=== PATIENT | female | born 1985 | race Caucasian/White ===

== ENCOUNTER 2018-06-13 20:52 | Emergency (ER) | payer OTHER, SELFPAY ==
[2018-06-13 20:53] VITALS: BP 116/73; PULSE 108; RESP 16; TEMP 37.1; O2SAT 98; BMI 32.8
--- NOTE | 2018-06-13 22:38 | CT_ITS ---
STUDY: CT ABDOMEN AND PELVIS WITH CONTRAST REASON FOR EXAM: Female, 32 years old. Lower abdominal pain, nausea, and abdominal distention. Elevated white blood cell count. History of 3 C-sections. RADIATION DOSAGE (If Supplied By Facility): CTDIvol = ( 17.62 ) mGy, DLP = ( 1170.90 ) mGycm TECHNIQUE: Transaxial images were obtained from the dome of the diaphragm to the symphysis pubis without oral contrast. Isovue 370 100ML IV was administered. Sagittal and coronal images were reconstructed. Individualized dose optimization techniques were used for this CT. COMPARISON: None. FINDINGS: The visualized lung bases are unremarkable. The visualized portions of the heart are within normal limits. Normal liver. Normal gallbladder and extrahepatic biliary system. Normal spleen. Normal pancreas. Normal bilateral adrenal glands. Normal right kidney. Normal left kidney. Normal visualized stomach. Normal small intestine. Normal colon. The appendix is visualized on axial images 75-84 and it appears normal.. Normal abdominal aorta. Normal inferior vena cava. Normal retroperitoneum. Normal urinary bladder. There is a 4 x 1.7 x 1.9 cm heterogeneous left ovarian cyst, possibly hemorrhagic cyst. Uterus is heterogeneous and contour is irregular, consistent with a leiomyomatous uterus. Largest individual leiomyoma identified measures 1.1 cm. There is a scar in the anterior lower uterine segment. There is a small amount of free fluid in posterior cul-de-sac pelvis. There is a small umbilical hernia containing fat, but no bowel. There are mild degenerative changes of the visualized lumbar spine. CT/Abdomen/Pelvis W IV Cont ONLY IMPRESSION: 4 cm complex left ovarian cyst, possibly hemorrhagic cyst. Suggest a follow-up pelvic ultrasound. Minimal free fluid in the posterior cul-de-sac pelvis. Leiomyomatous uterus. No evidence for acute pathology. No evidence for appendicitis or diverticulitis. No evidence for bowel obstruction or ileus. No demonstrated urinary calculi or hydronephrosis. Electronically Signed: Rony Mireles MD at 0:34 EDT , Service support ,
--- NOTE | 2018-06-13 22:47 | ED.DCSUM_ITS ---
- ER Visit Summary Date of Service: 06/13/18 Chief Complaint: Abdominal pain History of Present Illness: The patient is a 32 F who presents for 1 day of abdominal pain. Patient states the onset was sudden in this morning, starting in the suprapubic region and rapidly radiating into the entire abdomen. She was incapacitated by the pain. It is pressure and cramping. Patient states the pain is worst in the right lower quadrant at this time. She had associated nausea but did not vomit. She tried an enema this afternoon without any bowel movement. She has had no diarrhea. She has had a significant decrease in flatus. She had a temperature 100.1 and chills at home. She denies chest pain, shortness of breath or other symptoms. No urinary symptoms. No vaginal discharge or bleeding. Patient denies . She has a history of 2 C- section deliveries. No other medical history or abdominal surgeries. Physical Examination: Vital signs: afebrile, hemodynamically stable, no hypoxia on room air General: well nourished, well developed, in no distress but appears mildly uncomfortable, constantly moving around on the bed and placing pressure on her right lower quadrant with her hand Skin: warm, dry, no rash, no pallor HEENT: normocephalic and atraumatic; PERRL, EOMI, moist mucous membranes Cardiovascular: Tachycardic rate and rhythm without murmurs, no peripheral edema, 2+ pulses all distal extremities Respiratory: No increased work of breathing, lungs are clear to auscultation bilaterally, no rales, rhonchi or wheezing Abdominal: Abdomen is soft, diffusely tender, more so in the lower quadrants, with normoactive bowel sounds, no guarding or rebound, no masses MSK: Moves all extremities, no deformities, normal strength Neuro: Awake and alert, oriented ?4. No facial droop, sensation and motor function intact and symmetric Test Results: Abnormal Lab Results 06/13/18 06/13/18 06/13/18 22:45 22:50 22:50 WBC 12.6 H RBC 4.50 Hgb 13.5 Hct 41.8 MCV 92.9 MCH 30.0 MCHC 32.3 RDW 13.8 RDW Differential 46.4 H Plt Count 268 MPV 10.4 Immature Gran % (Auto) 0.200 Neut % (Auto) 76.6 H Lymph % (Auto) 13.9 L [place] % (Auto) 7.4 Eos % (Auto) 1.7 Baso % (Auto) 0.2 Absolute Neuts (auto) 9.7 H Absolute Lymphs (auto) 1.75 Total Counted Not Reportable Sodium 138 Potassium 3.7 Chloride 105 Carbon Dioxide 30.0 Anion Gap 3 L BUN 12 Creatinine 0.75 Estim Creat Clear Calc 102.78 Est GFR (MDRD) Af Amer 113 Est GFR (MDRD) Non-Af 93 BUN/Creatinine Ratio 15.9 Glucose 86 Calcium 8.4 L Total Bilirubin 0.50 AST 13 L ALT 17 Alkaline Phosphatase 55 Total Protein 7.9 Albumin 3.8 Globulin 4.1 Albumin/Globulin Ratio 0.9 Lipase 84 Serum , Qual Urine Color Straw Urine Clarity Sl. Cloudy Urine pH 7.0 Ur Specific [place] 1.010 Urine Protein Negative Urine Glucose (UA) Normal Urine Ketones Negative Urine Occult Blood Negative Urine Nitrite Negative Urine Bilirubin Negative Urine Urobilinogen Normal Ur Leukocyte Esterase Negative Urine RBC 0 SEEN Urine WBC 0-5 SEEN Ur Squamous Epith Cells 0-5 SEEN Urine Bacteria 0 SEEN Urine Mucus 0 SEEN 06/13/18 22:50 WBC RBC Hgb Hct MCV MCH MCHC RDW RDW Differential Plt Count MPV Immature Gran % (Auto) Neut % (Auto) Lymph % (Auto) [place] % (Auto) Eos % (Auto) Baso % (Auto) Absolute Neuts (auto) Absolute Lymphs (auto) Total Counted Sodium Potassium Chloride Carbon Dioxide Anion Gap BUN Creatinine Estim Creat Clear Calc Est GFR (MDRD) Af Amer Est GFR (MDRD) Non-Af BUN/Creatinine Ratio Glucose Calcium Total Bilirubin AST ALT Alkaline Phosphatase Total Protein Albumin Globulin Albumin/Globulin Ratio Lipase Serum , Qual NEGATIVE Urine Color Urine Clarity Urine pH Ur Specific [place] Urine Protein Urine Glucose (UA) Urine Ketones Urine Occult Blood Urine Nitrite Urine Bilirubin Urine Urobilinogen Ur Leukocyte Esterase Urine RBC Urine WBC Ur Squamous Epith Cells Urine Bacteria Urine Mucus Clinical Impression(s) from Imaging Studies Abdomen/Pelvis CT 06/13/18 22:38 IMPRESSION: 4 cm complex left ovarian cyst, possibly hemorrhagic cyst. Suggest a follow-up pelvic ultrasound. Minimal free fluid in the posterior cul-de-sac pelvis. Leiomyomatous uterus. No evidence for acute pathology. No evidence for appendicitis or diverticulitis. No evidence for bowel obstruction or ileus. No demonstrated urinary calculi or hydronephrosis. Electronically Signed: Rony Mireles MD at 0:34 EDT , Service support , Transvaginal US 06/14/18 00:45 IMPRESSION: 2.3 cm complex right ovarian nodule, probably representing a recently ruptured and partially collapsed corpus luteum cyst. Small amount of free fluid in the posterior cul-de-sac of the pelvis and right adnexal region. No evidence for large left ovarian cyst. I suspect that the low-attenuation structure seen in the left adnexal region on CT scan and thought to represent a complex ovarian cyst was actually the left ovary. No evidence for ovarian torsion. Tentative identification of a leiomyoma in the uterine fundus. Electronically Signed: Rony Mireles MD at 3:44 EDT , Service support , Medications Given Discontinued Medications Sodium Chloride () 1,000 mls @ 1,000 mls/hr IV .Q1H ONE Stop: 06/13/18 23:37 Last Admin: 06/13/18 22:57 Dose: 1,000 mls/hr Ketorolac Tromethamine (Toradol) 15 mg IV X1 ONE Stop: 06/13/18 22:39 Last Admin: 06/13/18 22:58 Dose: 15 mg Ondansetron HCl (Zofran) 4 mg IV X1 ONE Stop: 06/13/18 22:39 Last Admin: 06/13/18 22:57 Dose: 4 mg Emergency Department Course and Treatment: Patient is tachycardic and appears uncomfortable with complaint of abdominal pain that started in the pelvic region and is now vague and diffuse but mainly in the right lower quadrant now. Patient was given IV fluids, Zofran and Toradol. Labs and CT scan of the abdomen and pelvis performed. test performed. test was negative. Labs showed a leukocytosis of 12.6. Urine was negative for infection. CT the abdomen and pelvis showed a normal appendix and no sign of bowel obstruction. It did show a large heterogenous left ovarian cyst and some free fluid in the pelvis. On reevaluation, patient still was uncomfortable and still had tenderness in the lower abdomen and pelvic region. Because of patient's initial onset of severe pelvic pain and the findings on CT scan, the concern at this point is possible ovarian torsion. Pelvic ultrasound was performed and no torsion was noted. Patient's pain is most likely from a ruptured ovarian cyst. Patient was reevaluated after the morphine and was feeling much better. She is going to follow-up with her currency counter. Patient will continue using [id number] NSAIDs for mild to moderate pain but was given a prescription for Percocet for severe pain. Patient was discharged home in improved condition with a ride. Treatment Plan: [] Disposition: [] Impression: ruptured ovarian cyst, abdominal pain This note was generated with [employer] dictation software. It may contain incorrect words, spelling, and punctuation that were not noted in review of the chart prior to signing ED Disposition - Plan for ED Patient: Disposition: Home or Assisted Living Instructions: ED Cyst Ovarian Prescriptions: Oxycodone HCl/Acetaminophen [Percocet 5/325] 1 tab PO Q6H PRN PRN 3 Days #10 tab PRN Reason: Pain Referrals: Marco Antonio Ortiz III, MD [Primary Care Provider] - 1-2 Days if not improving Additional Instructions: Please use ibuprofen or naproxen for mild to moderate pain. You may use the Percocet for severe pain. Follow-up with your currency counter for another evaluation of your ovarian cyst. If you experience return of severe pain, any lightheadedness or dizziness, high fever, uncontrolled vomiting, or any other concerning symptoms, return immediately to the emergency department for another evaluation.
[2018-06-13] MEDS: 0.9% Normal Saline 1,000 ML 1000 ML IV (22:57)
[2018-06-13] MEDS: Ondansetron 4 MG/2 ML Vial IV (22:57)
[2018-06-13] MEDS: Ketorolac 30 MG/ML Syringe 15 MG IV (22:58)
[2018-06-13 22:59] VITALS: RESP 16
[2018-06-13 23:05] LABS: Bacteria 0 SEEN /hpf (None Seen); Mucous, Urine 0 SEEN /hpf (<or=2+); Red Blood Cells-Urine 0 SEEN /hpf (0-5)
[2018-06-13 23:11] LABS: Absolute Lymphocyte Count 1.75 X10^3/ul (0.83-4.51); Absolute Neutrophil Count 9.7 X10^3/uL (2.0-7.7); Basophil# 0.02 X10^3/uL; Basophil% 0.2 % (0-1); Eosinophil# 0.22 X10^3/uL; Eosinophils% 1.7 % (0-5); Hematocrit 41.8 % (37-47); Hemoglobin 13.5 g/dl (12.0-15.0); Lymphocyte # 1.75 X10^3/ul (4.0); Lymphocyte % 13.9 % (19-41); Mean Corp Hgb Conc 32.3 g/gl (32-36); Mean Corpuscular Volume 92.9 fL (81-99); Mean Platelet Vol. 10.4 fl (6.2-12.0); Monocyte# 0.93 X10^3/uL; Monocyte% 7.4 % (0-10); Neutrophil # 9.65 X10^3/uL (2.7-7.7); Neutrophil % 76.6 % (47-70); POSITIVE COUNT NO; POSITIVE DIFFERENTIAL NO; POSITIVE MORPHOLOGY NO; Platelet Count 268 K/mm3 (150-450); RBC Distribution Width CV 13.8 % (11.6-14.6); RBC Distribution Width SD 46.4 fl (35.1-43.9); White Blood Count 12.6 K/mm3 (4.4-11.0)
[2018-06-13 23:18] LABS: Color, Urine Straw (Yellow); Glucose, Dipstick Normal (Normal); Ketone-Dipstick Negative (Negative); Leukocyte Esterase-Dipstick Negative /ul (Negative); Nitrite-Dipstick Negative (Negative); Occult Blood-Urine Negative /ul (Negative); Protein-Dipstick Negative (Negative); Urine Bilirubin Dipstick Negative (Negative); Urine Clarity Sl. Cloudy (Clear); Urine Urobilinogen Normal (Normal)
[2018-06-13 23:20] LABS: Squamous Epithelial Cells - UA 0-5 SEEN /hpf (5-10)
[2018-06-13 23:21] LABS: White Blood Cells 0-5 SEEN /hpf (0-5)
[2018-06-13 23:24] LABS: ALB/GLOB Ratio 0.9 RATIO (0.9-2.4); AST(SGOT) 13 U/L (15-37); Alanine Aminotransfer ALT/SGPT 17 U/L (13-56); Albumin, Serum 3.8 g/dL (3.2-5.0); Alkaline Phosphatase 55 U/L (45-117); Anion Gap 3 (5-15); BUN 12 mg/dL (7-18); BUN/Creat Ratio 15.9 RATIO (10-20); Calcium,Total 8.4 mg/dL (8.5-10.1); Chloride 105 mmol/L (98-107); Creatinine, Serum 0.75 mg/dL (0.55-1.02); EST Glomerular Filtration Rate 93 mL/min (>60); Est Glom Filt Rate - Afr Amer 113 mL/min (>60); Estimated Creatinine Clearance 102.78 ml/min; Globulin 4.1 g/dL (2.2-4.2); Glucose 86 mg/dL (74-106); Lipase 84 U/L (73-393); Potassium 3.7 mmol/L (3.5-5.1); Protein, Total 7.9 g/dL (6.4-8.2); Sodium Level 138 mmol/L (136-145)
[2018-06-13 23:26] LABS: Pregnancy, Serum, hCG Quali. NEGATIVE Negative (0-9 Nonpreg)
[2018-06-13 23:55] VITALS: BP 117/63; PULSE 82; RESP 16; TEMP 36.6; O2SAT 98
--- NOTE | 2018-06-14 00:45 | US_ITS ---
STUDY: ULTRASOUND OF THE FEMALE PELVIS - COMPLETE REASON FOR EXAM: Female, 32 years old. Bloating and mid pelvic pain for one day. Ovarian cyst. LMP: 04/30/2018. TECHNIQUE: Transabdominal and Transvaginal TECHNICAL QUALITY: Limited. Transabdominal imaging is limited by nonfilling of the urinary bladder. Visualization of the uterine fundus is limited by retroflexed position of the uterus and associated increased distance of the fundus from the vaginal probe on transvaginal imaging. COMPARISON: CT scan abdomen and pelvis 06/13/2018. FINDINGS: The uterus is retroflexed.. The uterus measures 9.7 x 5.6 x 4.1 cm. Normal uterine cervix. The endometrium measures 1.2 cm in thickness, and is hyperechoic. There is no demonstrated endometrial mass. There is a low-attenuation scar in the anterior lower uterine segment measuring 1.4 x 1.3 cm. As seen on image , there appears to be a 2 cm leiomyoma arising from the posterior uterine fundus. Finding is not well seen due to technical limitations of the study and was not noted or measured by the dairy manufacturing technologist. I.U.D. - The patient does not have an I.U.D. The right ovary is visualized. The right ovary measures 3.8 x 3.4 x 2.9 cm. There is a 2.3 x 1.6 x 1.9 cm hypoechoic nodule in the right ovary containing a small irregular cyst with increased surrounding vascular flow, probably representing a recently ruptured and collapsed corpus luteum cyst. There is normal arterial and normal venous vascularity. The left ovary is visualized. The left ovary measures 4.3 x 2.8 x 2.2 cm. There are multiple follicles of the left ovary without a dominant cyst. There is no visualized left adnexal mass or complex lesion. There is normal arterial and normal venous vascularity. There is a small amount of fluid in the cul-de-sac and in the right adnexal region. The pre void volume of the bladder was 27 ml. Polycystic ovary disease: No. US/Transvaginal Non- IMPRESSION: 2.3 cm complex right ovarian nodule, probably representing a recently ruptured and partially collapsed corpus luteum cyst. Small amount of free fluid in the posterior cul-de-sac of the pelvis and right adnexal region. No evidence for large left ovarian cyst. I suspect that the low-attenuation structure seen in the left adnexal region on CT scan and thought to represent a complex ovarian cyst was actually the left ovary. No evidence for ovarian torsion. Tentative identification of a leiomyoma in the uterine fundus. Electronically Signed: Rony Mireles MD at 3:44 EDT , Service support ,
[2018-06-14 00:58] VITALS: BP 107/58; PULSE 75; RESP 16; O2SAT 99
[2018-06-14] MEDS: Morphine 4 MG/ML Syringe IV (01:01)
[2018-06-14 03:14] VITALS: BP 106/62; PULSE 83; RESP 16; TEMP 36.7; O2SAT 98
[2018-06-14 04:00] VITALS: BP 101/66; PULSE 85; RESP 16; O2SAT 96
== END 2018-06-14 04:32 | disposition home or self-care (01) ==
PROVIDERS: Emergency Provider Emergency Medicine; Family Provider Family Medicine; PCP Family Medicine
DX: N83.292 Other ovarian cyst, left side (principal); R10.31 Right lower quadrant pain
CPT/HCPCS: 74177; 76830; 80053; 81001; 83690; 84703; 85025; 93976; 96361; 96374; 96375; 99283; J7030; Q9967; A4216; J2405

== ENCOUNTER 2022-06-02 18:22 | Emergency (ER) | payer OTHER, SELFPAY ==
[2022-06-02 18:24] VITALS: BP 170/92; PULSE 122; RESP 18; TEMP 35.8; O2SAT 100; BMI 36.6
--- NOTE | 2022-06-02 18:43 | CT_ITS ---
STUDY: CTA HEAD AND NECK WITH CONTRAST REASON FOR EXAM: Female, 36 years old. Worsening migraine headache. Patient has been getting migraine headaches since Hanh of last year. RADIATION DOSAGE (If Supplied By Facility): CTDIvol = ( 30.98 ) mGy, DLP = ( 1517.29 ) mGycm TECHNIQUE: CT angiography was performed with a multi-detector CT scanner. Data acquisition was obtained from the skull base through the vertex following intravenous administration of IV 100mL Isovue-370. MIP images were reconstructed from the axial data set. Post-processing of the angiographic images was performed, with multiplanar reformation and 3D reconstruction. Individualized dose optimization techniques were used for this CT. COMPARISON: No relevant priors. FINDINGS: Normal bilateral petrous carotid arteries. Normal right cavernous carotid artery with a normal supraclinoid bifurcation. Normal left cavernous carotid artery with a normal supraclinoid bifurcation. Normal right A1 segments of the anterior cerebral artery. Normal left A1 segments of the anterior cerebral artery. Normal intact anterior communicating artery (ACOM). Normal bilateral A2 segments of the anterior cerebral arteries. Normal right M1 and M2 segments of the middle cerebral arteries, with a normal M1 bifurcation. Normal left M1 and M2 segments of the middle cerebral arteries, with a normal M1 bifurcation. Normal right posterior communicating artery (PCOM). Normal left posterior communicating artery (PCOM). Normal bilateral vertebral arteries. 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 The visualized bilateral superior cerebellar (SCA) arteries are normal. Normal P1, P2 and visualized P3 segments of the right posterior cerebral artery. This is an absent P1 segment of the left posterior cerebral artery. The P2 and visualized P3 segments are supplied via the patent posterior communicating artery. There is no demonstrated aneurysm of the [place]. There is no demonstrated abnormality of the visualized brain. AORTIC ARCH: Normal visualized aortic arch. Normal origins of the brachiocephalic, left common carotid, and left subclavian arteries. RIGHT CAROTID ARTERIES: Normal right common carotid artery (CCA). Normal right common carotid bulb. Normal origin of the right internal carotid (ICA) artery without a hemodynamically significant stenosis. Normal visualized cervical portion of the right internal carotid artery. Normal origin of the right external carotid artery (ECA). LEFT CAROTID ARTERIES: Normal left common carotid artery (CCA). Normal left common carotid bulb. Normal origin of the left internal carotid (ICA) artery without a hemodynamically significant stenosis. Normal visualized cervical portion of the left internal carotid artery. Normal origin of the left external carotid artery (ECA). VERTEBRAL ARTERIES: Normal bilateral vertebral arteries. CT/CTA Head AND Neck W/ Contrast IMPRESSION: 1. Normal carotid and vertebral arteries. 2. Mildly atretic basilar artery. 3. 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 The distal vessels supplied via the posterior communicating artery. 4. No visualized aneurysm or large vessel occlusion. Electronically Signed: Issa Canales DO at 19:37 EST ,
--- NOTE | 2022-06-02 18:44 | EX.ED.VIS.HA ---
HPI History of Present Illness Chief Complaint: Headache Detail of Chief Complaint: Headache Informant: patient Narrative Narrative: Patient presents with a headache that she has had since . Patient states that the headache does not go away. Patient has seen a neurologist and has seen ENT. Patient has had a plain CT scan of the brain that she brought with her and report and is also had an MRI of her brain. Patient states the headache is more severe today and rates it an 8 out of 10. She complains of photophobia. She complains of nausea. She has been tried on Depakote which she did not not have success with. Patient also currently taking nortriptyline. Patient tells me there is a grandmother that from a brain aneurysm. Patient denies any falls or head injuries. Headache currently frontal and in the back of her head. Patient complains of photophobia. She complains of loud sounds bothering her head. Patient also states that she has had fast heart rates and recently finished wearing a Holter monitor which did find some evidence for SVT and she is scheduled in July to follow-up with cardiology. Prior similar symptoms: Yes PFSH PFSH Allergy/AdvReac Type Severity Reaction Status Date / Time hydromorphone [From Dilaudid] Allergy Hives Verified 06/02/22 18:27 sumatriptan [From Imitrex] Allergy Swelling Verified 06/02/22 18:27 Social History Smoking Status: Never smoker ROS ROS ED Review of Systems ROS Unobtainable: other Constitutional Constitutional ED: Reports lethargy; Denies chills, fever(s), sweats or weight loss Eyes Eyes: Denies blurry vision, change in vision or diplopia ENT ENT ED: Denies rhinorrhea or sore throat Cardiovascular Cardiovascular: Denies chest pain, orthopnea or racing heartbeat Respiratory/Chest Respiratory/Chest: Denies cough, dyspnea, dyspnea on exertion, orthopnea or sputum Gastrointestinal Gastrointestinal: Denies abdominal pain, diarrhea, nausea or vomiting Genitourinary Genitourinary ED: Denies dysuria, hematuria or urinary frequency Musculoskeletal Musculoskeletal: Denies arthralgias, back pain, myalgias or neck pain Integumentary Denies abscess, Abrasions or rash Neurologic Neurologic: Reports headache(s); Denies weakness Psychiatric Psychiatric: Denies anxiety, depression or suicidal thoughts Endocrine Endocrinology: Denies polydipsia, polyphagia or polyuria Hematologic/Lymphatic Hematologic/Lymphatic: Denies easy bleeding, easy bruising or lymphadenopathy Allergic/Immunologic Allergic/Immunologic ED: Denies mouth swelling, tongue swelling or urticaria EXAM Physical Exam Const Vital Signs: 06/02/22 18:24 Temperature 96.5 F L Temperature Source Temporal Pulse Rate 122 H Respiratory Rate 18 Blood Pressure 170/92 H Blood Pressure Mean 118 Pulse Ox 100 Oxygen Delivery Method Room Air Positive well nourished and well developed General Appearance ED: well developed and NAD HEENT Reports TM's clear and moist mucous membranes normocephalic and atraumatic; Negative for trauma or tenderness Tympanic Membrane ED: Yes TM's clear Eyes PERRL and EOMs intact bilaterally General Eye ED: Negative for pale conjunctiva or scleral icterus Neck no lymphadenopathy, supple and no JVD General: Negative for tenderness Chest Wall inspection of chest normal and palpation of chest normal Chest: Negative for tenderness Resp normal respiratory effort and clear to auscultation bilaterally Effort and Inspection: Negative for respiratory distress or pain with movement Auscultation: Negative for rhonchi, wheezes or diminished lung sounds Cardio regular rate, regular rhythm, S1 normal heart sound, S2 normal heart sound and no murmurs Peripheral Pulses: pulses 2+ throughout GI normal to inspection, nondistended, normoactive bowel sounds, soft to palpation, non-tender, non-distended and no masses Back/Spine no CVA tenderness and no thoracic nor lumbar tenderness Extremity normal to inspection General Extremety ED: Negative for edema General Extremity: Negative for edema Neuro oriented x3, CN's II-XII intact bilaterally, no sensory deficits noted and gait normal Neuro Narrative: Finger-nose and heel avilez testing within normal limits, negative Romberg, negative pronator drift, fundi benign Sensorium / Orientation: awake, alert, oriented to person, oriented to place and oriented to time Motor Exam: strength 5/5 throughout and strength abnormal Psych mental status grossly normal Skin no rashes or lesions noted and no wounds MDM MDM MDM Narrative Medical decision making narrative: Louis to the emergency department with ongoing headache for more than 3 months. She has been to neurology and has had MRI of the brain as well as a CT scan of the brain which were unremarkable. Patient currently being treated as migraine by her neurologist. She is on nortriptyline. Patient has tried steroids in the past and has tried Depakote without any improvement in her symptoms. Neurologically she is intact here. Given her family history of brain aneurysms and the fact that she has had no imaging to evaluate her vasculature I did obtain a CTA of the head and neck which were negative for aneurysm or dissection or any acute disease process. Patient was given Reglan, Benadryl, Toradol, and a liter normal saline fluid bolus and had minimal improvement in her headache with that. Patient was then given DHE 1 mg IV and again had minimal improvement in her headache. I gave her Decadron 10 mg IV. I offered to give her magnesium or narcotic pain medicine to help improve her symptoms however she does not want to have any narcotic pain medicine and does not want any further treatment at this time would like to go home and take her nortriptyline and follow-up with her neurologist. Radiography Diagnostic Testing: Clinical Impression(s) from Imaging Studies Head/Neck CTA 06/02/22 18:43 IMPRESSION: 1. Normal carotid and vertebral arteries. 2. Mildly atretic basilar artery. 3. 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 The distal vessels supplied via the posterior communicating artery. 4. No visualized aneurysm or large vessel occlusion. Electronically Signed: Issa CollingswoodDO dayday at 19:37 EST Reading Location ID and State: [address] [place] [address] Tel [phone], Service support , Discharge Plan Triage Chief Complaint: Headache ED Provider: Abdoulaye Bernal Dx/Rx/DC Orders Clinical Impression: Headache, migraine Instructions: ED, Migraine (Classical) Primary Care Provider: UCHE ARIAS Referrals: NOT,DEFINED [Non-Staff] - Activity Restrictions/Additional Instructions: Follow-up with your neurologist at the earliest possible time. Disposition Disposition: Home, Self Care
[2022-06-02] MEDS: 0.9% Normal Saline 1,000 ML 1000 ML IV (18:55)
[2022-06-02] MEDS: Metoclopramide 10 MG/2 ML Vial IV (18:56)
[2022-06-02] MEDS: Ketorolac 30 MG/ML Syringe IV (18:56)
[2022-06-02] MEDS: DiphenhydrAMINE 50 MG/ML Syringe 25 MG IV (18:56)
[2022-06-02] MEDS: dexAMETHasone 10 MG/ML Vial IV (19:56)
[2022-06-02] MEDS: Dihydroergotamine 1 MG/ML Ampul IV (20:17)
[2022-06-02 21:38] VITALS: BP 148/79; PULSE 71; RESP 15; O2SAT 98
== END 2022-06-02 21:39 | disposition home or self-care (01) ==
PROVIDERS: Emergency Provider Emergency Medicine; Visit Provider Emergency Medicine
DX: G43.909 Migraine, unspecified, not intractable, without status migrainosus (principal)
CPT/HCPCS: 70496; 70498; 96361; 96374; 96375; 99283; J7030; Q9967; A4216; J1110

== ENCOUNTER 2022-11-19 09:54 | Outpatient (RCR) | payer OTHER, SELFPAY | END 2022-11-26 23:59 | LOC: NS 09:54 | PROVIDERS: Referring Provider Nurse Practitioner Family; Visit Provider Nurse Practitioner Family | DX: Z71.3 Dietary counseling and surveillance (principal); E66.9 Obesity, unspecified; Z68.34 Body mass index [BMI] 34.0-34.9, adult; E78.00 Pure hypercholesterolemia, unspecified; F41.9 Anxiety disorder, unspecified; F32.A Depression, unspecified | CPT/HCPCS: 97802 ==

== ENCOUNTER 2022-12-24 14:30 | Outpatient (RCR) | payer OTHER, SELFPAY | END 2022-12-26 23:59 | LOC: NS 14:30 | PROVIDERS: Referring Provider Nurse Practitioner Family; Visit Provider Nurse Practitioner Family | DX: E66.9 Obesity, unspecified (principal); Z68.34 Body mass index [BMI] 34.0-34.9, adult; F41.9 Anxiety disorder, unspecified; F32.A Depression, unspecified; E78.00 Pure hypercholesterolemia, unspecified | CPT/HCPCS: 97803 ==

== ENCOUNTER 2023-02-04 09:15 | Outpatient (RCR) | payer OTHER, SELFPAY | END 2023-02-25 23:59 | LOC: NS 09:15 | PROVIDERS: Referring Provider Nurse Practitioner Family; Visit Provider Nurse Practitioner Family | DX: Z71.3 Dietary counseling and surveillance (principal); E66.9 Obesity, unspecified; Z68.34 Body mass index [BMI] 34.0-34.9, adult; E78.00 Pure hypercholesterolemia, unspecified; F41.9 Anxiety disorder, unspecified; F32.A Depression, unspecified | CPT/HCPCS: 97803 ==

== ENCOUNTER 2023-04-08 12:36 | Outpatient (RCR) | payer OTHER, SELFPAY | END 2023-04-28 23:59 | LOC: NS 12:36 | PROVIDERS: Referring Provider Nurse Practitioner Family; Visit Provider Nurse Practitioner Family | DX: Z71.3 Dietary counseling and surveillance (principal); E78.00 Pure hypercholesterolemia, unspecified; F41.9 Anxiety disorder, unspecified; F32.A Depression, unspecified; E66.9 Obesity, unspecified; Z68.34 Body mass index [BMI] 34.0-34.9, adult | CPT/HCPCS: 97803 ==